=== PATIENT | female | born 1985 | race Caucasian/White ===

== ENCOUNTER 2023-04-23 09:17 | Outpatient (CLI) | payer MEDICAID ==
[2023-04-23 16:59] LABS: RHEUMATOID FACTOR NEGATIVE (Negative)
[2023-04-23 21:16] LABS: ESTIMATED AVERAGE GLUCOSE 91 mg/dL (70-100); HEMOGLOBIN A1c% 4.8 % (4.27-6.07)
[2023-04-24 03:09] LABS: HCV AB Non Reactive (Non Reactive)
[2023-04-24 22:06] LABS: CYCLIC CITRULLINATED PEP IGG/A 6 units (0-19)
[2023-04-25 17:07] LABS: ANTINUCLEAR ANTIBODIES IFA Negative (.)
== END 2023-04-23 09:18 | disposition home or self-care (01) ==
LOC: LAB.S 09:17
PROVIDERS: ATTEND Internal Medicine
DX: L53.9 Erythematous condition, unspecified (principal)
CPT/HCPCS: 36415; 83036; 84550; 86038; 86200; 86430; 86803